=== PATIENT | female | born 1975 | race Caucasian/White ===

== ENCOUNTER 2017-01-31 13:00 | Emergency (ER) | payer SELFPAY ==
[2017-01-31 14:03] LABS: BASOPHILS 0.3 % (0.0-2.0); EOSINOPHILS 1.3 % (0-7); HEMOGLOBIN 14.1 g/dL (12-16); IMMATURE GRANULOCYTES 0.3 % (0-5); MCH 30.7 pg (26.0-34.0); MCHC 33.6 g/dL (31.0-37.0); MCV 91.5 fL (80.0-100.0); MEAN PLATELET VOLUME 9.9 fL (7.4-10.4); NEUTROPHILS 65.1 % (40-80); PLATELET COUNT 261 10x3/uL (130-400); RBC 4.59 10x6/uL (4.00-5.40); RDW 11.9 % (11.5-14.5); WBC 6.8 10x3/uL (4.8-10.8)
== END 2017-01-31 17:16 | disposition left against medical advice (07) ==
LOC: D.ER 13:00
PROVIDERS: Family Medicine
DX: R10.84 Generalized abdominal pain (principal)